=== PATIENT | female | born 1965 | race African-American/Black ===

== ENCOUNTER 2023-07-05 12:54 | Emergency (ER) | payer BC, MEDICAID ==
[~2023-07-05] VITALS: Ht 162.6 cm; Wt 72.6 kg
[2023-07-05 13:06] VITALS: BP 117/87; PULSE 109; RESP 18; O2SAT 99
[2023-07-05] MEDS ORDERED: KETOROLAC TROMETH 60MG/2ML VIAL IM ONE (15:00)
[2023-07-05] MEDS ORDERED: METH-1181 PO (15:25)
[2023-07-05] MEDS ORDERED: MELO7.5T7 PO (15:25)
== END 2023-07-05 15:30 | disposition home or self-care (01) ==
LOC: ER 12:54
DX: M54.6 Pain in thoracic spine (principal); M79.18 Myalgia, other site; M79.601 Pain in right arm; Z20.822 Contact with and (suspected) exposure to COVID-19; Z88.2 Allergy status to sulfonamides; V43.52XA Car driver injured in collision with other type car in traffic accident, initial encounter; Y93.89 Activity, other specified; Y92.488 Other paved roadways as the place of occurrence of the external cause; Y99.8 Other external cause status
CPT/HCPCS: 96372; 99283; J1885